=== PATIENT | male | born 1990 | race Caucasian/White ===

== ENCOUNTER 2023-02-18 17:30 | Outpatient (CLI) | payer BC, SELFPAY ==
[2023-02-18 18:02] LABS: Basophils Absolute Auto 0.04 K/mm3 (0.00-0.10); Basophils Percent Auto 0.6 % (0.0-1.0); Eosinophils Absolute Auto 0.02 K/mm3 (0.02-0.50); Eosinophils Percent Auto 0.3 % (1.0-6.0); Hemoglobin 16.1 g/dL (14.0-18.0); Immature Granulocyte Absolute 0.02 K/mm3 (0.00-0.00); Immature Granulocyte Percent A 0.3 % (0.0-0.0); Mean Corpuscular HGB Conc 33.5 g/dL (32.0-36.0); Mean Corpuscular Hemoglobin 28.5 pg (27.0-31.0); Mean Corpuscular Volume 85.1 fL (78.0-102.0); Mean Platelet Volume 9.4 fl (8.7-11.0); Monocytes Absolute Auto 0.58 K/mm3 (0.10-0.90); Monocytes Percent Auto 8.3 % (2.0-11.0); Neutrophils Absolute Auto 4.9 K/mm3 (1.7-7.2); Neutrophils Percent Auto 70.5 % (50.0-70.0); Platelet Count Result 285 K/mm3 (150-420); Red Blood Count 5.64 M/mm3 (4.70-6.10); Red Cell Distribution Width 11.8 % (11.6-14.4)
[2023-02-18 18:46] LABS: Alanine Aminotransferase 28 U/L (16-63); Albumin Level 5.1 g/dL (3.4-5.0); Alkaline Phosphatase 41 U/L (46-116); Anion Gap 6 mmol/L (8-16); Aspartate Amino Transferase 14 U/L (15-37); Bilirubin,Total 0.8 mg/dL (0.00-1.00); Blood Urea Nitrogen 10 mg/dL (7-18); Calcium 9.8 mg/dL (8.5-10.1); Carbon Dioxide 37 mmol/L (21-32); Chloride 99 mmol/L (98-108); Estimated Glomerular Filt Rate > 60; Free T3 3.11 pg/mL (2.18-3.98); Free T4 Free Thyroxine 1.29 ng/dL (0.76-1.46); Glucose 88 mg/dL (70-99); Osmolality Calculated 292 mOsm/kg (285-295); Potassium 4.1 mmol/L (3.5-5.1); Sodium 142 mmol/L (136-145); Thyroid Stimulating Hormone 1.07 uIU/mL (0.36-3.74); Total Protein 8.8 g/dL (6.4-8.2)
[2023-02-18 18:47] LABS: CRP < 0.1 mg/dL (0.0-0.9)
[2023-02-18 19:06] LABS: Erythrocyte Sedimentation Rate 4 mm/hr (0-15)
== END 2023-02-18 17:31 | disposition home or self-care (01) ==
PROVIDERS: PCP Internal Medicine; Visit Provider Internal Medicine
DX: R13.10 Dysphagia, unspecified (principal)
CPT/HCPCS: 36415; 80053; 84439; 84443; 84481; 85025; 85652; 86140